=== PATIENT | female | born 1950 | race African-American/Black ===

== ENCOUNTER 2019-07-15 11:55 | Emergency (ER) | payer OTHER ==
[~2019-07-15] VITALS: Ht 157.5 cm; Wt 91.0 kg
[2019-07-15 12:36] VITALS: BP 162/78
[2019-07-15] MEDS ORDERED: ACETAMINOPHEN 325MG TABLET PO ONE (13:30)
== END 2019-07-15 18:05 | disposition home or self-care (01) ==
LOC: ER 15:38
DX: M25.561 Pain in right knee (principal)
CPT/HCPCS: 73560; 99283

== ENCOUNTER 2019-10-28 10:36 | Emergency (ER) | payer OTHER ==
[~2019-10-28] VITALS: Ht 157.5 cm; Wt 93.0 kg
[2019-10-28] MEDS ORDERED: ACETAMINOPHEN 325MG TABLET PO ONE (11:45)
[2019-10-28 13:30] VITALS: BP 132/77
== END 2019-10-28 13:45 | disposition home or self-care (01) ==
LOC: ER 10:36
DX: M79.605 Pain in left leg (principal); I10 Essential (primary) hypertension; E11.9 Type 2 diabetes mellitus without complications
CPT/HCPCS: 93971; 99284